=== PATIENT | female | born 1975 | race Caucasian/White ===

== ENCOUNTER 2019-06-15 09:32 | Emergency (ER) | payer OTHER ==
[2019-06-15] MEDS ORDERED: TORAdol 30 mg Injection IV ONE (09:46)
[2019-06-15] MEDS ORDERED: Hydromorphone 1 mg/ml Ampule IV ONE (09:46)
[2019-06-15] MEDS ORDERED: MORPHINE SULFATE 4 MG INJ IV ONE (09:46)
[2019-06-15] MEDS ORDERED: Sodium Chloride 0.9% 1000 ML 1,000 ML IV STA (09:46)
[2019-06-15] MEDS ORDERED: TORAdol 30 mg Injection ONE (09:58)
[2019-06-15] MEDS ORDERED: MORPHINE SULFATE 4 MG INJ ONE (09:58)
[2019-06-15] MEDS ORDERED: Hydromorphone 1 mg/ml Ampule ONE (09:58)
[2019-06-15] MEDS ORDERED: Sodium Chloride 0.9% 1000 ML 1,000 ML ONE (09:59)
[2019-06-15] MEDS ORDERED: Zofran 4 MG/2 ML VIAL ONE (10:00)
--- NOTE | 2019-06-15 10:00 | ERPHSYRPT ---
- History of Present Illness Time Seen by Provider: 06/15/19 09:35 Patient Subjective Stated Complaint: Pt states "I think I have a hernia. My belly hurts so bad." Triage Nursing Assessment: Pt presented alert and oriented X 3, skin pwd Pt grunting, tachypneic. Pt guarding her abdomen. PT sitting with knees drawn up. Physician History: Patient is here with lower abdomen pain. It has been going on for a few weeks. But, it suddenly got worse today. No falls or trauma. She denies vaginal bleeding or vaginal complaints. She has a previous tubal ligation. Lower abdomen Sharp non-radiating several weeks, but worse today started suddenly she as tried no at home medications for pain relief Allergies/Adverse Reactions: cyclobenzaprine [From Flexeril] Allergy (Severe, Verified 06/15/19 09:39) Shortness of Breath Home Medications: Gabapentin [Neurontin] 600 mg PO DAILY 06/15/19 [History] Tramadol HCl 50 mg [Ultram 50 mg] 50 mg PO DAILY 06/15/19 [History] Hx Tetanus, Diphtheria Vaccination/Date Given: Yes Hx Influenza Vaccination/Date Given: Yes Hx Pneumococcal Vaccination/Date Given: No Immunizations Up to Date: Yes - Review of Systems Constitutional: No Fever, No Chills Eyes: No Symptoms Ears, Nose, & Throat: No Symptoms Respiratory: No Cough, No Dyspnea Cardiac: No Chest Pain, No Edema, No Syncope Abdominal/Gastrointestinal: Abdominal Pain, Nausea, No Vomiting, No Diarrhea Genitourinary Symptoms: No Dysuria Musculoskeletal: No Back Pain, No Neck Pain Skin: No Rash Neurological: No Dizziness, No Focal Weakness, No Sensory Changes Psychological: No Symptoms Endocrine: No Symptoms All Other Systems: Reviewed and Negative - Past Medical History Pertinent Past Medical History: Yes Neurological History: No Pertinent History Cardiac History: No Pertinent History Respiratory History: No Pertinent History Endocrine Medical History: No Pertinent History Musculoskeletal History: Fibromyalgia, Other Other Medical History: HX OF SLIP AND FALL ABOUT 10-11 YEARS AGO AND STILL PROBLEM WITH LEFT SIDE ESPECIALLY ARM WITH INTERMITTENT NUMBNESS AND DECREASED STRENGTH. - Past Surgical History Past Surgical History: Yes Other Surgical History: tubal. cyst removed - Social History Smoking Status: Current every day smoker How long have you smoked: years Exposure to second hand smoke: Yes Drug Use: none Patient Lives Alone: No - Female History Hx Last Menstrual Period: 05/26/2019 Hx Now: No - Nursing Vital Signs Nursing Vital Signs: Initial Vital Signs Temperature 97.8 F 06/15/19 09:34 Pulse Rate 80 06/15/19 09:34 Respiratory Rate 22 06/15/19 09:34 Blood Pressure 112/63 06/15/19 09:34 O2 Sat by Pulse Oximetry 100 06/15/19 09:34 Pain Scale Pain Intensity 6 - Physical Exam General Appearance: no apparent distress, alert Eye Exam: PERRL/EOMI, eyes nml inspection Ears, Nose, Throat Exam: normal ENT inspection, pharynx normal, moist mucous membranes Neck Exam: normal inspection, non-tender, supple, full range of motion Respiratory Exam: normal breath sounds, lungs clear, No respiratory distress Cardiovascular Exam: regular rate/rhythm, normal heart sounds Gastrointestinal/Abdomen Exam: soft, No tenderness, No mass Back Exam: normal inspection, normal range of motion, No CVA tenderness, No vertebral tenderness Extremity Exam: normal inspection, normal range of motion, pelvis stable Neurologic Exam: alert, oriented x 3, cooperative, normal mood/affect, nml cerebellar function, sensation nml, No motor deficits Skin Exam: normal color, warm, dry SpO2: 100 Comments: 06/15/19 09:57 Lower abdomen is tender suprapubic without rebound or guarding. Otherwise, abdomen is soft without tenderness Ordered Tests: Active Orders 24 hr Category Date Time Status IV Insertion STAT Care 06/15/19 09:46 Active NPO (ED) STAT Care 06/15/19 09:46 Active ABDOMEN AND PELVIS W CONTRAST [CT] Stat Exams 06/15/19 09:47 Completed CBC W DIFF Stat Lab 06/15/19 09:55 Completed CMP Stat Lab 06/15/19 09:55 Completed HCG QUALITATIVE,SERUM Stat Lab 06/15/19 Completed HCG,QUALITATIVE URINE Stat Lab 06/15/19 Uncollected LIPASE Stat Lab 06/15/19 09:55 Completed UA W/RFX UR CULTURE Stat Lab 06/15/19 09:47 Uncollected Medication Summary Discontinued Medications Generic Name Dose Route Start Last Admin Trade Name Freq PRN Reason Stop Dose Admin Hydromorphone HCl 1 mg 06/15/19 09:46 06/15/19 10:01 Hydromorphone 1 Mg/Ml Ampule IV 06/15/19 09:47 1 mg STAT ONE Administration Hydromorphone HCl Confirm 06/15/19 09:58 Hydromorphone 1 Mg/Ml Ampule Administered 06/15/19 09:59 Dose 1 mg .ROUTE .STK-MED ONE Sodium Chloride 1,000 mls @ 999 mls/hr 06/15/19 09:46 06/15/19 11:08 Sodium Chloride 0.9% 1000 Ml IV 06/15/19 10:46 Infused .Q1H1M STA Infusion Sodium Chloride Confirm 06/15/19 09:59 Sodium Chloride 0.9% 1000 Ml Administered 06/15/19 10:00 Dose 1,000 mls @ ud .ROUTE .STK-MED ONE Ketorolac Tromethamine 30 mg 06/15/19 09:46 06/15/19 10:01 Toradol 30 Mg Injection IV 06/15/19 09:47 30 mg STAT ONE Administration Ketorolac Tromethamine Confirm 06/15/19 09:58 Toradol 30 Mg Injection Administered 06/15/19 09:59 Dose 30 mg .ROUTE .STK-MED ONE Morphine Sulfate 4 mg 06/15/19 09:46 06/15/19 10:01 Morphine Sulfate 4 Mg Inj IV 06/15/19 09:47 Not Given STAT ONE Morphine Sulfate Confirm 06/15/19 09:58 Morphine Sulfate 4 Mg Inj Administered 06/15/19 09:59 Dose 4 mg .ROUTE .STK-MED ONE Ondansetron HCl Confirm 06/15/19 10:00 Zofran 4 Mg/2 Ml Vial Administered 06/15/19 10:01 Dose 4 mg .ROUTE .STK-MED ONE Ondansetron HCl 4 mg 06/15/19 10:03 06/15/19 10:03 Zofran 4 Mg/2 Ml Vial IV 06/15/19 10:04 4 mg STAT ONE Administration Lab/Rad Data: Laboratory Result Diagrams 06/15/19 09:55 06/15/19 09:55 Laboratory Results 06/15/19 06/15/19 12 Range/Units Unknown 09:55 09:55 WBC 8.3 (4.0-10.5) K/mm3 RBC 4.26 (4.1-5.4) M/mm3 Hgb 13.6 (12.0-16.0) gm/dl Hct 41.6 (35-47) % MCV 97.7 (78-100) fl MCH 31.9 (26-32) pg MCHC 32.7 (32-36) g/dl RDW 12.7 (11.5-14.0) % Plt Count 221 (150-450) K/mm3 MPV 10.5 H (6-9.5) fl Gran % 70.0 H (36.0-66.0) % Eos # (Auto) 0.18 (0-0.5) Absolute Lymphs (auto) 1.64 (1.0-4.6) Absolute Monos (auto) 0.60 (0.0-1.3) Lymphocytes % 19.9 L (24.0-44.0) % Monocytes % 7.3 (0.0-12.0) % Eosinophils % 2.2 (0.00-5.0) % Basophils % 0.6 (0.0-0.4) % Absolute Granulocytes 5.78 (1.4-6.9) Basophils # 0.05 (0-0.4) Sodium 145 (137-145) mmol/L Potassium 4.0 (3.5-5.1) mmol/L Chloride 113 H (98-107) mmol/L Carbon Dioxide 23 (22-30) mmol/L Anion Gap 13.5 (5-15) MEQ/L BUN 21 H (7-17) mg/dL Creatinine 0.83 (0.52-1.04) mg/dL Estimated GFR > 60.0 ML/MIN Glucose 64 L (74-106) mg/dL Calcium 9.4 (8.4-10.2) mg/dL Total Bilirubin 0.50 (0.2-1.3) mg/dL AST 28 (14-36) U/L ALT 14 (0-35) U/L Alkaline Phosphatase 50 (38-126) U/L Serum Total Protein 7.5 (6.3-8.2) g/dL Albumin 4.1 (3.5-5.0) g/dL Lipase 128 (23-300) U/L Serum , Qual NEGATIVE (Negative) - Progress Progress Note: 06/15/19 10:00 Diff ectopic , appy, infection, kidney stone, UTI, pyleo, SBO - basic labs, fluids, IV Dilaudid for pain control, CT ab/pelvis 06/15/19 11:20 CT scan shows no obvious pathology some fecal stasis. Work up largely unremarkable. test negative. Patient has not given a urine sample. She still may have a UTI. I did offer constipation medication and waiting for urine. Patient declines waiting to give a urine sample or medication. She states she would like to leave at this time. No fever, no increase in WBC, abdominal reexam is non tender. Therefore, we will discharge and have her see PCP tomorrow. She needs an abdominal reexam in 24 hours. She will also need a UA at the PCP. She states her understanding and will follow up. - Departure Departure Disposition: Home Clinical Impression: Lower abdominal pain Condition: Stable Critical Care Time: No Referrals: LEV LOPEZ [Primary Care Provider] - Follow Up with PCP (abdominal reexam in 24 hours with PCP)
[2019-06-15] MEDS ORDERED: Zofran 4 MG/2 ML VIAL IV ONE (10:03)
[2019-06-15 10:05] LABS: Absolute Neutrophil Ct (ANC) 5.78 (1.4-6.9); BASOPHIL % 0.6 % (0.0-0.4); Basophil (Absolute #) 0.05 (0-0.4); Eosinophil % 2.2 % (0.00-5.0); Eosinophil (Absolute #) 0.18 (0-0.5); Hematocrit 41.6 % (35-47); Hemoglobin 13.6 gm/dl (12.0-16.0); Lymphocyte (Absolute #) 1.64 (1.0-4.6); Lymphocytes % 19.9 % (24.0-44.0); Mean Cell Volume 97.7 fl (78-100); Mean Corpuscular Hemoglobin 31.9 pg (26-32); Mean Corpuscular Hgb Concent. 32.7 g/dl (32-36); Mean Platelet Volume 10.5 fl (6-9.5); Monocytes % 7.3 % (0.0-12.0); Platelet Count 221 K/mm3 (150-450); Red Blood Count 4.26 M/mm3 (4.1-5.4); Red Cell Distribution Width 12.7 % (11.5-14.0); White Blood Count 8.3 K/mm3 (4.0-10.5)
--- NOTE | 2019-06-15 10:50 | XRAY ---
Indication: Lower abdomen pain. Multiple contiguous axial images obtained through the abdomen and pelvis using 80 cc Isovue 370 contrast as ordered. Comparison: None Lung bases demonstrates mild bilateral dependent atelectasis. No infiltrate or effusion. Heart is not enlarged. Noncontrasted stomach and bowel loops appear nonobstructed. Normal appendix. Moderate diffuse scattered colonic fecal debris throughout including rectum. Tiny cul-de-sac free fluid presumed physiologic from rupture/leaking cyst. No free air. Remaining liver, gallbladder, pancreas, spleen, adrenal glands, kidneys, ureters, bladder, and uterus appear unremarkable. Minimal aortic calcifications. No AAA or pathologic retroperitoneal lymphadenopathy. Osseous structures intact. Impression: 1. Diffuse fecal stasis. 2. Tiny cul-de-sac fluid presumed physiologic. 3. Remaining CT abdomen/pelvis with contrast exam is negative. CT DI 3.01
[2019-06-15 10:57] LABS: ALBUMIN 4.1 g/dL (3.5-5.0); ALKALINE PHOSPHATASE 50 U/L (38-126); ANION GAP 13.5 MEQ/L (5-15); BLOOD UREA NITROGEN 21 mg/dL (7-17); CHLORIDE 113 mmol/L (98-107); Calcium 9.4 mg/dL (8.4-10.2); Carbon Dioxide 23 mmol/L (22-30); Creatinine 1 0.83 mg/dL (0.52-1.04); Glucose 64 mg/dL (74-106); LIPASE 128 U/L (23-300); SGOT/AST 28 U/L (14-36); SGPT/ALT 14 U/L (0-35); SODIUM 145 mmol/L (137-145); Total Protein 7.5 g/dL (6.3-8.2)
[2019-06-15 11:54] VITALS: BP 118/77; PULSE 77; O2SAT 97
== END 2019-06-15 11:50 | disposition home or self-care (01) ==
LOC: ED 09:32
DX: R10.30 Lower abdominal pain, unspecified (principal)
CPT/HCPCS: 36000; 36415; 74177; 80053; 81025; 83690; 85025; 96360; 96374; 96375; 99284; J1170; J1885; J2270; J2405

== ENCOUNTER 2019-07-23 21:45 | Emergency (ER) | payer OTHER ==
[2019-07-23] MEDS ORDERED: BENADRYL 25 MG CAPSULE PO ONE (22:09)
[2019-07-23] MEDS ORDERED: Ativan 1 MG PO ONE (22:09)
[2019-07-23 22:13] VITALS: O2SAT 100
--- NOTE | 2019-07-23 22:15 | ERPHSYRPT ---
- History of Present Illness Time Seen by Provider: 07/23/19 22:10 Source: patient, family Exam Limitations: no limitations Physician History: pt reports seeing worms crawling out of forearms and took pinworm meds OTC , but still having itching, no other symptoms at this time; Timing/Duration: week(s) Quality: itchy, painful Severity: moderate Location: hands, extremities Possible Causes: other ( has video of nematodes crawling on skin of forearms) Associated Symptoms: rash Allergies/Adverse Reactions: cyclobenzaprine [From Flexeril] Allergy (Severe, Verified 07/23/19 21:55) Shortness of Breath Home Medications: Alprazolam [Xanax] 0.5 mg PO DAILY 07/23/19 [History] Naproxen 500 mg [Naprosyn 500 MG] 1 tab PO BID 07/23/19 [History] Hx Tetanus, Diphtheria Vaccination/Date Given: Yes Hx Influenza Vaccination/Date Given: Yes Hx Pneumococcal Vaccination/Date Given: No - Review of Systems Constitutional: No Fever, No Chills Eyes: No Symptoms Ears, Nose, & Throat: No Symptoms Respiratory: No Cough, No Dyspnea Cardiac: No Chest Pain, No Edema, No Syncope Abdominal/Gastrointestinal: No Abdominal Pain, No Nausea, No Vomiting, No Diarrhea Genitourinary Symptoms: No Dysuria Musculoskeletal: No Back Pain, No Neck Pain Skin: Pruritis, Rash, Skin Lesions, Other (no current visible nematodes ) Neurological: No Dizziness, No Focal Weakness, No Sensory Changes Psychological: No Symptoms Endocrine: No Symptoms Hematologic/Lymphatic: No Symptoms Immunological/Allergic: No Symptoms All Other Systems: Reviewed and Negative - Past Medical History Pertinent Past Medical History: Yes Neurological History: No Pertinent History Cardiac History: No Pertinent History Respiratory History: No Pertinent History Endocrine Medical History: No Pertinent History Musculoskeletal History: Fibromyalgia, Other Other Medical History: HX OF SLIP AND FALL ABOUT 10-11 YEARS AGO AND STILL PROBLEM WITH LEFT SIDE ESPECIALLY ARM WITH INTERMITTENT NUMBNESS AND DECREASED STRENGTH. - Past Surgical History Past Surgical History: Yes Other Surgical History: tubal. cyst removed - Social History Smoking Status: Current every day smoker How long have you smoked: years Exposure to second hand smoke: Yes Drug Use: none Patient Lives Alone: No - Nursing Vital Signs Nursing Vital Signs: Initial Vital Signs Temperature 97.7 F 07/23/19 22:01 Pulse Rate 83 01/19/20 22:01 Respiratory Rate 18 07/23/19 22:01 Blood Pressure 102/65 07/23/19 22:01 O2 Sat by Pulse Oximetry 100 07/23/19 22:01 Pain Scale Pain Intensity 9 - Physical Exam General Appearance: no apparent distress, alert Eye Exam: PERRL/EOMI, eyes nml inspection Ears, Nose, Throat Exam: normal ENT inspection, pharynx normal, moist mucous membranes Neck Exam: normal inspection, non-tender, supple, full range of motion Respiratory Exam: normal breath sounds, lungs clear, No respiratory distress Cardiovascular Exam: regular rate/rhythm, normal heart sounds Gastrointestinal/Abdomen Exam: soft, mass, No tenderness Pelvic Exam: deferred Rectal Exam: deferred Back Exam: normal inspection, normal range of motion, No CVA tenderness, No vertebral tenderness Extremity Exam: normal inspection, normal range of motion Neurologic Exam: alert, oriented x 3, cooperative, normal mood/affect, sensation nml, No motor deficits Skin Exam: normal color, warm, dry, rash SpO2 Interpretation: normal SpO2: 100 O2 Delivery: Room Air - Course Nursing assessment & vital signs reviewed: Yes Ordered Tests: Active Orders 24 hr Category Date Time Status IV Insertion STAT Care 07/23/19 22:15 Active CBC W DIFF Stat Lab 07/23/19 22:06 Completed CMP Stat Lab 07/23/19 22:06 Completed Erythrocyte Sedimentation Rate Stat Lab 07/23/19 22:06 Completed HCG QUALITATIVE,SERUM Stat Lab 07/23/19 Completed Lactic Acid Stat Lab 07/23/19 23:00 Completed T4 (Thyroxine) Stat Lab 07/23/19 22:06 Completed TSH, 3RD Generation Stat Lab 07/23/19 22:06 Completed UA W/RFX UR CULTURE Stat Lab 07/23/19 23:06 Completed Medication Summary Discontinued Medications Generic Name Dose Route Start Last Admin Trade Name Freq PRN Reason Stop Dose Admin Diphenhydramine HCl 50 mg 07/23/19 22:09 07/23/19 22:22 Benadryl 25 Mg Capsule PO 07/23/19 22:10 50 mg STAT ONE Administration Diphenhydramine HCl Confirm 07/23/19 22:16 Benadryl 25 Mg Capsule Administered 07/23/19 22:17 Dose 50 mg .ROUTE .STK-MED ONE Lorazepam 1 mg 07/23/19 22:09 07/23/19 22:22 Ativan 1 Mg PO 07/23/19 22:10 1 mg STAT ONE Administration Lorazepam Confirm 07/23/19 22:16 Ativan 1 Mg Administered 07/23/19 22:17 Dose 1 mg .ROUTE .STK-MED ONE Lab/Rad Data: Laboratory Result Diagrams 07/23/19 22:06 07/23/19 22:06 Laboratory Results 07/23/19 07/23/19 07/23/19 Range/Units Unknown 23:06 23:00 WBC (4.0-10.5) K/mm3 RBC (4.1-5.4) M/mm3 Hgb (12.0-16.0) gm/dl Hct (35-47) % MCV (78-100) fl MCH (26-32) pg MCHC (32-36) g/dl RDW (11.5-14.0) % Plt Count (150-450) K/mm3 MPV (7.5-11.0) fl Gran % (36.0-66.0) % Eos # (Auto) (0-0.5) Absolute Lymphs (auto) (1.0-4.6) Absolute Monos (auto) (0.0-1.3) Lymphocytes % (24.0-44.0) % Monocytes % (0.0-12.0) % Eosinophils % (0.00-5.0) % Basophils % (0.0-0.4) % Absolute Granulocytes (1.4-6.9) Basophils # (0-0.4) ESR (0-20) mm/hr Sodium (137-145) mmol/L Potassium (3.5-5.1) mmol/L Chloride (98-107) mmol/L Carbon Dioxide (22-30) mmol/L Anion Gap (5-15) MEQ/L BUN (7-17) mg/dL Creatinine (0.52-1.04) mg/dL Estimated GFR ML/MIN Glucose (74-106) mg/dL Lactic Acid 1.6 (0.4-2.0) Calcium (8.4-10.2) mg/dL Total Bilirubin (0.2-1.3) mg/dL AST (14-36) U/L ALT (0-35) U/L Alkaline Phosphatase (38-126) U/L Serum Total Protein (6.3-8.2) g/dL Albumin (3.5-5.0) g/dL Thyroxine (T4) (5.53-10.96) ug/dL TSH 3rd Generation (0.47-4.68) mIU/L Serum , Qual NEGATIVE (Negative) Urine Color YELLOW (YELLOW) Urine Appearance SLIGHTLY CLOUDY (CLEAR) Urine pH 6.0 (5-6) Ur Specific [place] 1.016 (1.005-1.025) Urine Protein NEGATIVE (Negative) Urine Ketones NEGATIVE (NEGATIVE) Urine Blood MODERATE (0-5) Ricardo/ul Urine Nitrite NEGATIVE (NEGATIVE) Urine Bilirubin NEGATIVE (NEGATIVE) Urine Urobilinogen 2 (0-1) mg/dL Ur Leukocyte Esterase NEGATIVE (NEGATIVE) Urine WBC (Auto) NONE (0-5) /HPF Urine RBC (Auto) NONE (0-2) /HPF U Epithel Cells (Auto) RARE (FEW) /HPF Urine Bacteria (Auto) NONE (NEGATIVE) /HPF Urine Mucus (Auto) SLIGHT (NEGATIVE) /HPF Urine Culture Reflexed NO (NO) Urine Glucose NEGATIVE (NEGATIVE) mg/dL 07/23/19 07/23/19 Range/Units 22:06 22:06 WBC 5.9 (4.0-10.5) K/mm3 RBC 4.06 L (4.1-5.4) M/mm3 Hgb 13.3 (12.0-16.0) gm/dl Hct 39.0 (35-47) % MCV 96.1 (78-100) fl MCH 32.8 H (26-32) pg MCHC 34.1 (32-36) g/dl RDW 12.7 (11.5-14.0) % Plt Count 223 (150-450) K/mm3 MPV 10.9 (7.5-11.0) fl Gran % 55.1 (36.0-66.0) % Eos # (Auto) 0.46 (0-0.5) Absolute Lymphs (auto) 1.54 (1.0-4.6) Absolute Monos (auto) 0.60 (0.0-1.3) Lymphocytes % 26.2 (24.0-44.0) % Monocytes % 10.2 (0.0-12.0) % Eosinophils % 7.8 H (0.00-5.0) % Basophils % 0.7 (0.0-0.4) % Absolute Granulocytes 3.23 (1.4-6.9) Basophils # 0.04 (0-0.4) ESR 13 (0-20) mm/hr Sodium 144 (137-145) mmol/L Potassium 3.6 (3.5-5.1) mmol/L Chloride 109 H (98-107) mmol/L Carbon Dioxide 28 (22-30) mmol/L Anion Gap 10.4 (5-15) MEQ/L BUN 20 H (7-17) mg/dL Creatinine 1.00 (0.52-1.04) mg/dL Estimated GFR > 60.0 ML/MIN Glucose 98 (74-106) mg/dL Lactic Acid (0.4-2.0) Calcium 9.3 (8.4-10.2) mg/dL Total Bilirubin 0.50 (0.2-1.3) mg/dL AST 37 H (14-36) U/L ALT 13 (0-35) U/L Alkaline Phosphatase 62 (38-126) U/L Serum Total Protein 7.6 (6.3-8.2) g/dL Albumin 4.3 (3.5-5.0) g/dL Thyroxine (T4) 6.85 (5.53-10.96) ug/dL TSH 3rd Generation 2.310 (0.47-4.68) mIU/L Serum , Qual (Negative) Urine Color (YELLOW) Urine Appearance (CLEAR) Urine pH (5-6) Ur Specific [place] (1.005-1.025) Urine Protein (Negative) Urine Ketones (NEGATIVE) Urine Blood (0-5) Ricardo/ul Urine Nitrite (NEGATIVE) Urine Bilirubin (NEGATIVE) Urine Urobilinogen (0-1) mg/dL Ur Leukocyte Esterase (NEGATIVE) Urine WBC (Auto) (0-5) /HPF Urine RBC (Auto) (0-2) /HPF U Epithel Cells (Auto) (FEW) /HPF Urine Bacteria (Auto) (NEGATIVE) /HPF Urine Mucus (Auto) (NEGATIVE) /HPF Urine Culture Reflexed (NO) Urine Glucose (NEGATIVE) mg/dL - Progress Progress: improved, re-examined Counseled pt/family regarding: lab results, diagnosis, need for follow-up - Departure Departure Disposition: Home Clinical Impression: Cutaneous larva migrans, Anxiety, hematuria/heme + urine Condition: Good Critical Care Time: No Referrals: LEV LOPEZ [Primary Care Provider] - Instructions: Anxiety, Adult (DC), Drug Abuse and Drug Addiction (DC), Cutaneous Larva Migrans, Cutaneous Larva Migrans (DC), Blood in the Urine ( Hematuria) in Adults Additional Instructions: although we cannot confirm residual cutaneous larva directly at this time, it could have been suppressed by the treatment you already had, and there is an elevated blood count marker ( eosinophils) which is frequently seen as part of a parasite infection; you should also followup with your Dr. to check on a rheumatologic disorder workup . THese things can also be triggered by a parasite infection or simulate one; return meantime if any concerns. there is a trace of blood inthe urine which also should be rechecked with your Dr. Prescriptions: Hydroxyzine Pamoate [Vistaril] 50 mg PO Q8HPRN PRN #20 capsule PRN Reason: Itching Albendazole 200 mg PO BID #6 tablet
[2019-07-23] MEDS ORDERED: BENADRYL 25 MG CAPSULE ONE (22:16)
[2019-07-23] MEDS ORDERED: Ativan 1 MG ONE (22:16)
[2019-07-23 22:42] LABS: Absolute Neutrophil Ct (ANC) 3.23 (1.4-6.9); BASOPHIL % 0.7 % (0.0-0.4); Basophil (Absolute #) 0.04 (0-0.4); Eosinophil % 7.8 % (0.00-5.0); Eosinophil (Absolute #) 0.46 (0-0.5); Hemoglobin 13.3 gm/dl (12.0-16.0); Lymphocyte (Absolute #) 1.54 (1.0-4.6); Lymphocytes % 26.2 % (24.0-44.0); Mean Cell Volume 96.1 fl (78-100); Mean Corpuscular Hemoglobin 32.8 pg (26-32); Mean Corpuscular Hgb Concent. 34.1 g/dl (32-36); Mean Platelet Volume 10.9 fl (7.5-11.0); Monocytes % 10.2 % (0.0-12.0); Neutrophil % 55.1 % (36.0-66.0); Platelet Count 223 K/mm3 (150-450); Red Blood Count 4.06 M/mm3 (4.1-5.4); Red Cell Distribution Width 12.7 % (11.5-14.0); White Blood Count 5.9 K/mm3 (4.0-10.5)
[2019-07-23 23:00] LABS: Erythrocyte Sedimentation Rate 13 mm/hr (0-20)
[2019-07-23 23:15] LABS: Appearance SLIGHTLY CLOUDY (CLEAR); Bilirubin NEGATIVE (NEGATIVE); Blood MODERATE Ery/ul (0-5); Epithelial Cells RARE /HPF (FEW); Glucose NEGATIVE (NEGATIVE); Ketones NEGATIVE (NEGATIVE); Leukocyte Esterase NEGATIVE (NEGATIVE); Mucus SLIGHT /HPF (NEGATIVE); Nitrite NEGATIVE (NEGATIVE); Protein,Urine Dip NEGATIVE (Negative); Specific Gravity 1.016 (1.005-1.025); Urobilinogen 2 mg/dL (0-1)
[2019-07-23 23:30] LABS: ALBUMIN 4.3 g/dL (3.5-5.0); ALKALINE PHOSPHATASE 62 U/L (38-126); ANION GAP 10.4 MEQ/L (5-15); BLOOD UREA NITROGEN 20 mg/dL (7-17); CHLORIDE 109 mmol/L (98-107); Calcium 9.3 mg/dL (8.4-10.2); Carbon Dioxide 28 mmol/L (22-30); Glucose 98 mg/dL (74-106); Potassium 3.6 mmol/L (3.5-5.1); SGOT/AST 37 U/L (14-36); SGPT/ALT 13 U/L (0-35); SODIUM 144 mmol/L (137-145); T4 (Thyroxine) 6.85 ug/dL (5.53-10.96); Total Protein 7.6 g/dL (6.3-8.2)
[2019-07-24 00:10] VITALS: BP 92/57; PULSE 70
== END 2019-07-24 00:20 | disposition home or self-care (01) ==
LOC: ED 21:45
DX: B76.9 Hookworm disease, unspecified (principal); F41.9 Anxiety disorder, unspecified; R31.9 Hematuria, unspecified; R21 Rash and other nonspecific skin eruption; R79.89 Other specified abnormal findings of blood chemistry
CPT/HCPCS: 36000; 36415; 80053; 81001; 81025; 83605; 84436; 84443; 85025; 85652; 99284; A9270-GY

== ENCOUNTER 2019-10-09 20:58 | Emergency (ER) | payer MEDICAID, OTHER ==
--- NOTE | 2019-10-09 21:04 | ERPHSYRPT ---
- History of Present Illness Time Seen by Provider: 10/09/19 21:04 Source: patient Exam Limitations: no limitations Physician History: This is a 44-year-old white female who has a history of anxiety disorder and presents with at least a 3-month history of electricity in her hair and then a visualization of bugs in her hair 3 months ago and complaints of bugs crawling on her skin. She sought medical evaluation in this emergency room on July. Although no specific larva a or bug infestation was found on that visit patient did get a treatment of albendazole and the diagnosis was given as cutaneous larva migrans. Patient states that after that treatment her symptoms have not improved. She states now she has swelling in her hands wrists and bilateral ankles. She states that she has been putting bleach on her hair and skin and this is not helping her symptoms either. Timing/Duration: other (Present for over 3 months) Severity: mild Associated Symptoms: denies symptoms Allergies/Adverse Reactions: cyclobenzaprine [From Flexeril] Allergy (Severe, Verified 10/09/19 21:20) Shortness of Breath Home Medications: Alprazolam [Xanax] 0.5 mg PO DAILY PRN PRN 07/23/19 [History] Naproxen 500 mg [Naprosyn 500 MG] 1 tab PO BID 07/23/19 [History] Hx Tetanus, Diphtheria Vaccination/Date Given: Yes Hx Influenza Vaccination/Date Given: Yes Hx Pneumococcal Vaccination/Date Given: No Travel Risk - International Travel Have you traveled outside of the country in past 3 weeks: No Have you or anyone close to you been diagnosed with or: No Do your reside in a community with a known COVID-19 case?: Yes If Yes where:: [facility] - Coronavirus Screening Has patient experienced Coronavirus symptoms: No - Review of Systems Constitutional: No Symptoms Eyes: No Symptoms Ears, Nose, & Throat: No Symptoms Respiratory: No Symptoms Cardiac: No Symptoms Abdominal/Gastrointestinal: No Symptoms Genitourinary Symptoms: No Symptoms Musculoskeletal: Other (Patient feels she has swelling in bilateral hands wrists and ankles and feet) Skin: No Symptoms Neurological: No Symptoms Psychological: No Symptoms Endocrine: No Symptoms Hematologic/Lymphatic: No Symptoms Immunological/Allergic: No Symptoms All Other Systems: Reviewed and Negative - Past Medical History Pertinent Past Medical History: Yes Neurological History: No Pertinent History Cardiac History: No Pertinent History Respiratory History: No Pertinent History Endocrine Medical History: No Pertinent History Musculoskeletal History: Fibromyalgia, Other GI Medical History: No Pertinent History History: No Pertinent History Psycho-Social History: No Pertinent History Female Reproductive Disorders: No Pertinent History Other Medical History: HX OF SLIP AND FALL ABOUT 10-11 YEARS AGO AND STILL PROBLEM WITH LEFT SIDE ESPECIALLY ARM WITH INTERMITTENT NUMBNESS AND DECREASED STRENGTH. - Past Surgical History Past Surgical History: Yes Neuro Surgical History: No Pertinent History Cardiac: No Pertinent History Respiratory: No Pertinent History Gastrointestinal: No Pertinent History Genitourinary: No Pertinent History Musculoskeletal: No Pertinent History Female Surgical History: No Pertinent History Other Surgical History: tubal. cyst removed - Social History Smoking Status: Current every day smoker How long have you smoked: years Exposure to second hand smoke: Yes Drug Use: none Patient Lives Alone: No - Nursing Vital Signs Nursing Vital Signs: Initial Vital Signs Temperature 98.2 F 10/09/19 21:05 Pulse Rate 93 H 10/09/19 21:05 Respiratory Rate 18 10/09/19 21:05 Blood Pressure 145/115 10/09/19 21:05 O2 Sat by Pulse Oximetry 95 10/09/19 21:05 Pain Scale Pain Intensity 6 - Physical Exam General Appearance: no apparent distress Eye Exam: PERRL/EOMI, eyes nml inspection Ears, Nose, Throat Exam: normal ENT inspection, moist mucous membranes Neck Exam: normal inspection, non-tender, supple, full range of motion Respiratory Exam: normal breath sounds, lungs clear, airway intact, No chest tenderness, No respiratory distress Cardiovascular Exam: regular rate/rhythm, normal heart sounds, normal peripheral pulses Gastrointestinal/Abdomen Exam: No tenderness Pelvic Exam: not done Rectal Exam: not done Back Exam: normal inspection, normal range of motion, No CVA tenderness, No vertebral tenderness Extremity Exam: normal inspection, normal range of motion, pelvis stable Neurologic Exam: alert, oriented x 3, cooperative, fish cutter II-XII nml as tested Skin Exam: normal color Lymphatic Exam: adenopathy SpO2 Interpretation: normal O2 Delivery: Room Air - Course Nursing assessment & vital signs reviewed: Yes Ordered Tests: Active Orders 24 hr Category Date Time Status Isolation, Initiate & Maintain Q4H Care 10/09/19 21:20 Active CBC W DIFF Stat Lab 10/09/19 21:25 Completed CMP Stat Lab 10/09/19 21:25 Completed CULTURE,URINE Stat Lab 10/09/19 21:30 Received NT PRO BNP Stat Lab 10/09/19 21:25 Completed UA W/RFX UR CULTURE Stat Lab 10/09/19 21:30 Completed Urine Triage Profile Stat Lab 10/09/19 21:30 Received Medication Summary Discontinued Medications Generic Name Dose Route Start Last Admin Trade Name Cabrera PRN Reason Stop Dose Admin Ciprofloxacin 500 mg 10/09/19 21:59 10/09/19 22:04 Cipro 500 Mg PO 10/09/19 22:00 500 mg STAT ONE Administration Ciprofloxacin Confirm 10/09/19 22:03 Cipro 500 Mg Administered 10/09/19 22:04 Dose 500 mg .ROUTE .[employer] [employer] ONE Lab/Rad Data: Laboratory Result Diagrams 10/09/19 21:25 10/09/19 21:25 Laboratory Results 10/09/19 10/09/19 10/09/19 Range/Units 21:30 21:25 21:25 WBC 6.5 (4.0-10.5) K/mm3 RBC 4.14 (4.1-5.4) M/mm3 Hgb 13.1 (12.0-16.0) gm/dl Hct 40.1 (35-47) % MCV 96.9 (78-100) fl MCH 31.6 (26-32) pg MCHC 32.7 (32-36) g/dl RDW 13.1 (11.5-14.0) % Plt Count 194 (150-450) K/mm3 MPV 10.8 (7.5-11.0) fl Gran % 47.2 (36.0-66.0) % Eos # (Auto) 0.34 (0-0.5) Absolute Lymphs (auto) 2.53 (1.0-4.6) Absolute Monos (auto) 0.50 (0.0-1.3) Lymphocytes % 39.0 (24.0-44.0) % Monocytes % 7.7 (0.0-12.0) % Eosinophils % 5.2 H (0.00-5.0) % Basophils % 0.9 (0.0-0.4) % Absolute Granulocytes 3.05 (1.4-6.9) Basophils # 0.06 (0-0.4) Sodium 143 (137-145) mmol/L Potassium 4.0 (3.5-5.1) mmol/L Chloride 113 H (98-107) mmol/L Carbon Dioxide 23 (22-30) mmol/L Anion Gap 11.3 (5-15) MEQ/L BUN 21 H (7-17) mg/dL Creatinine 0.77 (0.52-1.04) mg/dL Estimated GFR > 60.0 ML/MIN Glucose 104 (74-106) mg/dL Calcium 8.9 (8.4-10.2) mg/dL Total Bilirubin 0.40 (0.2-1.3) mg/dL AST 24 (14-36) U/L ALT 18 (0-35) U/L Alkaline Phosphatase 53 (38-126) U/L NT-Pro-B Natriuret Pep 128 (0-450) pg/mL Serum Total Protein 6.7 (6.3-8.2) g/dL Albumin 3.8 (3.5-5.0) g/dL Urine Color YELLOW (YELLOW) Urine Appearance CLOUDY (CLEAR) Urine pH 6.0 (5-6) Ur Specific Donaldson 1.029 (1.005-1.025) Urine Protein NEGATIVE (Negative) Urine Ketones NEGATIVE (NEGATIVE) Urine Blood NEGATIVE (0-5) Ricardo/ul Urine Nitrite NEGATIVE (NEGATIVE) Urine Bilirubin NEGATIVE (NEGATIVE) Urine Urobilinogen 2 (0-1) mg/dL Ur Leukocyte Esterase SMALL (NEGATIVE) Urine WBC (Auto) 11-15 (0-5) /HPF Urine RBC (Auto) 6-10 (0-2) /HPF U Epithel Cells (Auto) MANY (FEW) /HPF Urine Bacteria (Auto) FEW (NEGATIVE) /HPF Unidentified Crystals 2-5 (NEGATIVE) /HPF Urine Mucus (Auto) SLIGHT (NEGATIVE) /HPF Urine Culture Reflexed YES (NO) Urine Glucose NEGATIVE (NEGATIVE) mg/dL - Progress Progress: unchanged Counseled pt/family regarding: lab results, diagnosis, need for follow-up - Departure Departure Disposition: Home Clinical Impression: UTI (urinary tract infection), Methamphetamine abuse Condition: Stable Critical Care Time: No Referrals: LEV LOPEZ [Primary Care Provider] - Additional Instructions: Drink Plenty of fluids. Take your medication as prescribed. Stop using illicit drugs. Follow-up with your primary care physician for further evaluation.
[2019-10-09 21:31] LABS: Absolute Neutrophil Ct (ANC) 3.05 (1.4-6.9); BASOPHIL % 0.9 % (0.0-0.4); Basophil (Absolute #) 0.06 (0-0.4); Eosinophil % 5.2 % (0.00-5.0); Eosinophil (Absolute #) 0.34 (0-0.5); Hematocrit 40.1 % (35-47); Hemoglobin 13.1 gm/dl (12.0-16.0); Lymphocyte (Absolute #) 2.53 (1.0-4.6); Mean Cell Volume 96.9 fl (78-100); Mean Corpuscular Hemoglobin 31.6 pg (26-32); Mean Corpuscular Hgb Concent. 32.7 g/dl (32-36); Mean Platelet Volume 10.8 fl (7.5-11.0); Monocytes % 7.7 % (0.0-12.0); Neutrophil % 47.2 % (36.0-66.0); Platelet Count 194 K/mm3 (150-450); Red Blood Count 4.14 M/mm3 (4.1-5.4); Red Cell Distribution Width 13.1 % (11.5-14.0); White Blood Count 6.5 K/mm3 (4.0-10.5)
[2019-10-09 21:45] LABS: Appearance CLOUDY (CLEAR); Bacteria FEW /HPF (NEGATIVE); Bilirubin NEGATIVE (NEGATIVE); Blood NEGATIVE Ery/ul (0-5); Epithelial Cells MANY /HPF (FEW); Glucose NEGATIVE (NEGATIVE); Ketones NEGATIVE (NEGATIVE); Leukocyte Esterase SMALL (NEGATIVE); Mucus SLIGHT /HPF (NEGATIVE); Nitrite NEGATIVE (NEGATIVE); Protein,Urine Dip NEGATIVE (Negative); Specific Gravity 1.029 (1.005-1.025); Urobilinogen 2 mg/dL (0-1)
[2019-10-09 21:55] LABS: Barbiturate,Urine NEGATIVE (NEGATIVE); Cocaine,Urine NEGATIVE (NEGATIVE); Methadone,Urine NEGATIVE (NEGATIVE); Opiate,Urine NEGATIVE (NEGATIVE); PCP,Urine NEGATIVE (NEGATIVE); THC,Urine NEGATIVE (NEGATIVE)
[2019-10-09] MEDS ORDERED: Cipro 500 MG PO ONE (21:59)
[2019-10-09 22:00] LABS: ALBUMIN 3.8 g/dL (3.5-5.0); ALKALINE PHOSPHATASE 53 U/L (38-126); ANION GAP 11.3 MEQ/L (5-15); BLOOD UREA NITROGEN 21 mg/dL (7-17); CHLORIDE 113 mmol/L (98-107); Calcium 8.9 mg/dL (8.4-10.2); Carbon Dioxide 23 mmol/L (22-30); Creatinine 1 0.77 mg/dL (0.52-1.04); Glucose 104 mg/dL (74-106); NT PRO BNP 128 pg/mL (0-450); SGOT/AST 24 U/L (14-36); SGPT/ALT 18 U/L (0-35); SODIUM 143 mmol/L (137-145); Total Protein 6.7 g/dL (6.3-8.2)
[2019-10-09] MEDS ORDERED: Cipro 500 MG ONE (22:03)
[2019-10-09 22:04] LABS: Benzodiazepine,Urine NEGATIVE (NEGATIVE)
[2019-10-09 22:07] VITALS: BP 105/55; PULSE 80; O2SAT 98
[2019-10-09 22:22] LABS: Amphetamine,Urine POSITIVE (NEGATIVE)
== END 2019-10-09 22:33 | disposition home or self-care (01) ==
LOC: ED 20:58
DX: N39.0 Urinary tract infection, site not specified (principal); F15.10 Other stimulant abuse, uncomplicated; F41.9 Anxiety disorder, unspecified
CPT/HCPCS: 36415; 80053; 80307; 81001; 83880; 85025; 87086; 99283; A9270-GY

== ENCOUNTER 2020-07-15 09:28 | Emergency (ER) | payer MEDICAID, OTHER ==
[2020-07-15] MEDS ORDERED: Sodium Chloride 0.9% 1000 ML 1,000 ML IV STA (09:30)
--- NOTE | 2020-07-15 09:33 | ERPHSYRPT ---
- History of Present Illness Time Seen by Provider: 07/15/20 09:40 Source: patient Exam Limitations: no limitations Physician History: Patient is a 44-year-old female presents to our ED with complaints of syncope. Patient arrived via EMS collared. Patient states that she was feeling dizzy. Patient felt she had to go to the bathroom. Patient went to have a bowel mov ement. Patient states she awoke on the floor. Patient had blood around her nose. No associated chest pain. No nausea or vomiting. No diaphoresis. No shortness of breath. No numbness tingling or weakness. Symptoms are mild to moderate in intensity. No specific worsening or improving factors. Patient is otherwise healthy. She voices no other complaints or concerns at this time. Patient is observed to be shivering. Patient states she is cold. It is cold outdoors today. Timing/Duration: today Severity: moderate Modifying Factors: Improves With: nothing Associated Symptoms: No nausea, No vomiting, No abdominal pain, No shortness of breath, No heartburn, No diaphoresis, No cough, No chills, No chest pain, No fever, No headaches, No loss of appetite, No syncope Allergies/Adverse Reactions: cyclobenzaprine [From Flexeril] Allergy (Severe, Verified 10/09/19 21:20) Shortness of Breath Home Medications: Unobtainable 07/15/20 [History] Hx Tetanus, Diphtheria Vaccination/Date Given: Yes Hx Influenza Vaccination/Date Given: Yes Hx Pneumococcal Vaccination/Date Given: No - Review of Systems Constitutional: No Symptoms, No Fever, No Chills Eyes: No Symptoms Ears, Nose, & Throat: No Symptoms Respiratory: No Symptoms, No Cough, No Dyspnea Cardiac: No Symptoms, No Chest Pain, No Edema, No Syncope Abdominal/Gastrointestinal: No Symptoms, No Abdominal Pain, No Nausea, No Vomiting, No Diarrhea Genitourinary Symptoms: No Symptoms, No Dysuria Musculoskeletal: No Symptoms, No Back Pain, No Neck Pain Skin: No Symptoms, No Rash Neurological: No Symptoms, No Dizziness, No Focal Weakness, No Sensory Changes Psychological: No Symptoms Endocrine: No Symptoms Hematologic/Lymphatic: No Symptoms Immunological/Allergic: No Symptoms All Other Systems: Reviewed and Negative - Past Medical History Pertinent Past Medical History: Yes Neurological History: No Pertinent History ENT History: No Pertinent History Cardiac History: No Pertinent History Respiratory History: No Pertinent History Endocrine Medical History: No Pertinent History Musculoskeletal History: Fibromyalgia, Other GI Medical History: No Pertinent History History: No Pertinent History Psycho-Social History: No Pertinent History Female Reproductive Disorders: No Pertinent History Other Medical History: HX OF SLIP AND FALL ABOUT 10-11 YEARS AGO AND STILL PROBLEM WITH LEFT SIDE ESPECIALLY ARM WITH INTERMITTENT NUMBNESS AND DECREASED STRENGTH. - Past Surgical History Past Surgical History: Yes Neuro Surgical History: No Pertinent History Cardiac: No Pertinent History Respiratory: No Pertinent History Gastrointestinal: No Pertinent History Genitourinary: No Pertinent History Musculoskeletal: No Pertinent History Female Surgical History: No Pertinent History Other Surgical History: tubal. cyst removed - Social History Smoking Status: Current every day smoker How long have you smoked: years Exposure to second hand smoke: Yes Drug Use: none Patient Lives Alone: No - Nursing Vital Signs Nursing Vital Signs: Initial Vital Signs Temperature 97.5 F 07/15/20 09:28 Pulse Rate 62 07/15/20 09:28 Respiratory Rate 22 07/15/20 09:28 Blood Pressure 98/64 07/15/20 09:28 O2 Sat by Pulse Oximetry 92 L 07/15/20 09:28 Pain Scale Pain Intensity 5 - Physical Exam General Appearance: no apparent distress, alert Eye Exam: PERRL/EOMI, eyes nml inspection Ears, Nose, Throat Exam: normal ENT inspection, TMs normal, pharynx normal, moist mucous membranes, other (There is a through and through laceration at the right upper lip. No active bleeding. There is swelling no foreign body. Dentition intact.) Neck Exam: normal inspection, other (Tenderness to palpation midline C-spine. We will maintain cervical collar until CT scan results.) Respiratory Exam: normal breath sounds, lungs clear, No respiratory distress Cardiovascular Exam: regular rate/rhythm, normal heart sounds, normal peripheral pulses Gastrointestinal/Abdomen Exam: soft, normal bowel sounds, No tenderness, No mass Back Exam: normal inspection, normal range of motion, No CVA tenderness, No vertebral tenderness Extremity Exam: normal inspection, normal range of motion, pelvis stable, other (Tenderness to palpation right posterior shoulder.) Neurologic Exam: alert, oriented x 3, cooperative, normal mood/affect, sensation nml, No motor deficits, No sensory deficit, No disoriented, No confusion, No uncooperative, No motor weakness, No facial droop, No slurred speech, No aphasia, No dysarthria, No abnormal gait, No abnormal cerebellar tests, No abnormal director sales and marketing II-XII Skin Exam: normal color, warm, dry, No rash Lymphatic Exam: No adenopathy SpO2 Interpretation: hypoxic SpO2: 92 O2 Delivery: Room Air Procedures - Laceration/Wound Repair Lip Wound Location: face (Right upper lip.) Wound's Depth, Shape: linear (There is a puncture wound with slight extension through the upper lip mucosa which extends to the vermilion border on the corresponding side.) Irrigated: Yes Hibiclens Prep: Yes Anesthesia: local, 1% Lidocaine Volume Anesthetic (ccs): 3 Wound Debrided: No debridement Wound Repaired With: sutures Suture Size/Type: 6-0, vicryl Number of Sutures: 2 Layer Closure?: No - Course Nursing assessment & vital signs reviewed: Yes EKG Interpreted by Me: RATE (60), Sinus Rhythm, NORMAL AXIS, NORMAL INTERVALS - Radiology Exams Shoulder X-ray Interpretation: Teleradiologist Report (No bony articular or soft tissue abnormalities.) - CT Exams Head CT Interpretation: Tele-radiologist Report (Paranasal sinus disease. Remaining CT head without contrast exam is negative.) Maxillofacial Bones CT Interpretation: Tele-radiologist Report (Mucosal thickening. Particularly of both inferior maxillary sinuses. Minimal nasal septal deviation to the left. Remaining soft tissue negative. 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 Remaining CT cervical spine negative.) Ordered Tests: Active Orders 24 hr Category Date Time Status Care Transitions Nurse STAT Care 07/15/20 09:31 Active EKG-ER Only STAT Care 07/15/20 09:30 Active IV Insertion STAT Care 07/15/20 09:30 Active Pulse Oximetry (ED) STAT Care 07/15/20 09:30 Active CERVICAL SPINE WO CONTRAST [CT] Stat Exams 07/15/20 10:29 Completed FACIAL BONES WO CONTRAST [CT] Stat Exams 07/15/20 10:29 Completed HEAD WITHOUT CONTRAST [CT] Stat Exams 07/15/20 10:29 Completed SHOULDER Stat Exams 07/15/20 10:28 Completed CBC W DIFF Stat Lab 07/15/20 09:49 Completed CMP Stat Lab 07/15/20 09:49 Completed D-DIMER QUANTITATIVE Stat Lab 07/15/20 09:49 Completed HCG,QUALITATIVE URINE Stat Lab 07/15/20 12:52 Ordered MAGNESIUM Stat Lab 07/15/20 09:49 Completed TROPONIN Q3H Lab 07/15/20 09:49 Completed TROPONIN Q3H Lab 07/15/20 12:06 Completed UA W/RFX UR CULTURE Stat Lab 07/15/20 12:52 Ordered Medication Summary Discontinued Medications Generic Name Dose Route Start Last Admin Trade Name Cabrera PRN Reason Stop Dose Admin Sodium Chloride 1,000 mls @ 999 mls/hr 07/15/20 09:30 07/15/20 09:58 Sodium Chloride 0.9% 1000 Ml IV 07/15/20 10:30 Not Given .Q1H1M STA Lidocaine HCl Confirm 07/15/20 13:14 Xylocaine 1% Hcl 20 Ml Mdv Administered 07/15/20 13:15 Dose 5 ml .ROUTE .[employer] Lab/Rad Data: Laboratory Result Diagrams 07/15/20 09:49 07/15/20 09:49 Laboratory Results 07/15/20 07/15/20 07/15/20 Range/Units 12:06 09:49 09:49 WBC (4.0-10.5) K/mm3 RBC (4.1-5.4) M/mm3 Hgb (12.0-16.0) gm/dl Hct (35-47) % MCV (78-100) fl MCH (26-32) pg MCHC (32-36) g/dl RDW (11.5-14.0) % Plt Count (150-450) K/mm3 MPV (7.5-11.0) fl Gran % (36.0-66.0) % Eos # (Auto) (0-0.5) Absolute Lymphs (auto) (1.0-4.6) Absolute Monos (auto) (0.0-1.3) Lymphocytes % (24.0-44.0) % Monocytes % (0.0-12.0) % Eosinophils % (0.00-5.0) % Basophils % (0.0-0.4) % Absolute Granulocytes (1.4-6.9) Basophils # (0-0.4) D-Dimer 407 (215-500) ng/mL Sodium (137-145) mmol/L Potassium (3.5-5.1) mmol/L Chloride (98-107) mmol/L Carbon Dioxide (22-30) mmol/L Anion Gap (5-15) MEQ/L BUN (7-17) mg/dL Creatinine (0.52-1.04) mg/dL Estimated GFR ML/MIN Glucose (74-106) mg/dL Calcium (8.4-10.2) mg/dL Magnesium (1.6-2.3) mg/dL Total Bilirubin (0.2-1.3) mg/dL AST (14-36) U/L ALT (0-35) U/L Alkaline Phosphatase (38-126) U/L Troponin I < 0.012 < 0.012 (0.000-0.034) ng/mL Serum Total Protein (6.3-8.2) g/dL Albumin (3.5-5.0) g/dL 07/15/20 07/15/20 Range/Units 09:49 09:49 WBC 6.5 (4.0-10.5) K/mm3 RBC 4.13 (4.1-5.4) M/mm3 Hgb 13.0 (12.0-16.0) gm/dl Hct 40.9 (35-47) % MCV 99.0 (78-100) fl MCH 31.5 (26-32) pg MCHC 31.8 L (32-36) g/dl RDW 13.0 (11.5-14.0) % Plt Count 215 (150-450) K/mm3 MPV 10.0 (7.5-11.0) fl Gran % 62.5 (36.0-66.0) % Eos # (Auto) 0.22 (0-0.5) Absolute Lymphs (auto) 1.76 (1.0-4.6) Absolute Monos (auto) 0.42 (0.0-1.3) Lymphocytes % 27.1 (24.0-44.0) % Monocytes % 6.5 (0.0-12.0) % Eosinophils % 3.4 (0.00-5.0) % Basophils % 0.5 (0.0-0.4) % Absolute Granulocytes 4.07 (1.4-6.9) Basophils # 0.03 (0-0.4) D-Dimer (215-500) ng/mL Sodium 140 (137-145) mmol/L Potassium 4.4 (3.5-5.1) mmol/L Chloride 112 H (98-107) mmol/L Carbon Dioxide 24 (22-30) mmol/L Anion Gap 8.8 (5-15) MEQ/L BUN 15 (7-17) mg/dL Creatinine 0.74 (0.52-1.04) mg/dL Estimated GFR > 60.0 ML/MIN Glucose 111 H (74-106) mg/dL Calcium 9.0 (8.4-10.2) mg/dL Magnesium 2.2 (1.6-2.3) mg/dL Total Bilirubin 0.40 (0.2-1.3) mg/dL AST 37 H (14-36) U/L ALT 13 (0-35) U/L Alkaline Phosphatase 47 (38-126) U/L Troponin I (0.000-0.034) ng/mL Serum Total Protein 6.7 (6.3-8.2) g/dL Albumin 3.7 (3.5-5.0) g/dL - Progress Progress: improved Progress Note: 07/15/20 12:14 Patient reassessed. She feels well. Work-up essentially negative. Patient was asymptomatic. Patient syncope likely either vasovagal versus orthostatic. IV fluid administered. CT head face neck all negative for acute pathology. Right shoulder x-ray negative as well. Troponin negative x2. Patient has no sig nificant risk factors to merit admission for the syncopal episode. Patient ambulated in our ED. Patient stated she felt very dizzy and felt as though she was going to pass out again. Patient requested admission. Case discussed with Dr. Gaxiola who excepts admission to observation. 07/15/20 12:40 07/15/20 13:31 Patient later decided that she wanted to go home. She has a 15-year-old son that needs her at home. We will discharge patient home. Patient will be given a prescription for Keflex to address/treat the right aspect of the upper lip laceration. Dr. Gaxiola updated on patient desire to leave. Patient will leave AMA. Patient is of sound mind. Patient is appropriate to make informed and independent medical decisions. Patient understands that leaving AMA can result in delayed diagnosis, increased risk morbidity, mortality, worsening of symptoms, short and long-term disability including . In spite of her risks patient has decided to leave AMA. An AMA form was signed. Patient understand that she may return to our ED at any point if she changes her mind. Patient agrees to follow-up with her primary care doctor within 48 hours for reevaluation. Discussed with : Edilberto Counseled pt/family regarding: lab results, diagnosis, need for follow-up, rad results - Departure Departure Disposition: AMA Clinical Impression: Syncope and collapse, Facial contusion, Diarrhea, Lip laceration Condition: Fair Critical Care Time: No Referrals: LEV LOPEZ [NON-STAFF PHY W/O PRIVILEGES] - Additional Instructions: Discharge/Care Plan SUTHERLANDPRINCESS AMANDA was seen on 07/15/20 in the Emergency Room. The patient wa s counseled regarding Diagnosis,Lab results, Imaging studies, need for follow up and when to return to the Emergency Room. Prescriptions given: Discharge Note I have spoken with the patient and/or caregivers. I have explained the patient's condition, diagnosis and treatment plan based on the information available to me at this time. I have answered the patient's and/or caregiver's questions and addressed any concerns. The patient and/or caregivers have as good understanding of the patient's diagnosis, condition and treatment plan as can be expected at this point. The vital signs have been stable. The patient's condition is stable and appropriate for discharge from the emergency department. The patient will pursue further outpatient evaluation with the primary care physician or other designated or consulting physician as outlined in the discharge instructions. The patient and/or caregivers are agreeable to this plan of care and follow-up instructions have been explained in detail. The patient and/or caregivers have received these instruction. The patient/and or caregivers are aware that any significant change in condition or worsening of symptoms should prompt an immediate return to this or the closest emergency department or call 911.
[2020-07-15 09:52] LABS: Absolute Neutrophil Ct (ANC) 4.07 (1.4-6.9); BASOPHIL % 0.5 % (0.0-0.4); Basophil (Absolute #) 0.03 (0-0.4); Eosinophil % 3.4 % (0.00-5.0); Eosinophil (Absolute #) 0.22 (0-0.5); Hematocrit 40.9 % (35-47); Lymphocyte (Absolute #) 1.76 (1.0-4.6); Lymphocytes % 27.1 % (24.0-44.0); Mean Corpuscular Hemoglobin 31.5 pg (26-32); Mean Corpuscular Hgb Concent. 31.8 g/dl (32-36); Monocyte (Absolute #) 0.42 (0.0-1.3); Monocytes % 6.5 % (0.0-12.0); Neutrophil % 62.5 % (36.0-66.0); Platelet Count 215 K/mm3 (150-450); Red Blood Count 4.13 M/mm3 (4.1-5.4); White Blood Count 6.5 K/mm3 (4.0-10.5)
[2020-07-15 10:24] LABS: ALBUMIN 3.7 g/dL (3.5-5.0); ALKALINE PHOSPHATASE 47 U/L (38-126); ANION GAP 8.8 MEQ/L (5-15); BLOOD UREA NITROGEN 15 mg/dL (7-17); CHLORIDE 112 mmol/L (98-107); Carbon Dioxide 24 mmol/L (22-30); Creatinine 1 0.74 mg/dL (0.52-1.04); EST GLOMERULAR FILTRATION RATE > 60.0 ML/MIN; Glucose 111 mg/dL (74-106); MAGNESIUM 2.2 mg/dL (1.6-2.3); Potassium 4.4 mmol/L (3.5-5.1); SGOT/AST 37 U/L (14-36); SGPT/ALT 13 U/L (0-35); SODIUM 140 mmol/L (137-145); Total Protein 6.7 g/dL (6.3-8.2)
--- NOTE | 2020-07-15 11:42 | XRAY ---
Indication: Right-sided injury following fall. Multiple contiguous axial images obtained through the head without contrast. Comparison: None Normal appearing brain parenchyma, ventricles, and bony calvarium. There is moderate mucosal thickening of both maxillary sinuses. Mastoid air cells are clear. Impression: Paranasal sinus disease. Remaining CT head without contrast exam is negative.
--- NOTE | 2020-07-15 11:46 | XRAY ---
Indication: Right-sided injury following fall. Multiple contiguous axial images obtained through the facial bones. Sagittal and coronal reformatted images obtained. Comparison: None. Multiple bilateral dental amalgams produces beam artifact. Axial images negative for acute fracture, suspicious bony lesions, or radiopaque foreign body. Orbits including roof, coffey, and floors are intact. There is moderate mucosal thickening of both inferior maxillary sinuses. Remaining paranasal sinuses and nasal passages are clear. Minimal nasal septal deviation to the left. Remaining visualized noncontrasted soft tissues are unremarkable. Impression: Paranasal sinus disease and minimal nasal septal deviation. Remaining CT facial bones is negative.
--- NOTE | 2020-07-15 11:51 | XRAY ---
Indication: Right-sided injury following fall. Multiple contiguous axial images obtained through the cervical spine. Sagittal and coronal reformatted images obtained. Comparison: Cervical radiograph September 23, 2017. Anatomic variants for nonunited posterior arch of C1. Spinous process of T1 again demonstrates old nonunited fracture. Remaining axial images negative for acute fracture, suspicious bony lesions, or spinal canal stenosis. Sagittal and coronal reformatted images demonstrates normal alignment with vertebral body heights/disc spaces maintained. No acute compression fracture, subluxation, or jumped facet. Normal appearing craniocervical junction. Visualized noncontrasted soft tissues demonstrates scattered centimeter/subcentimeter cervical lymph nodes bilaterally, none pathologically enlarged. Lung apices are clear. Impression: 1. 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 2. Remaining CT cervical spine is negative.
--- NOTE | 2020-07-15 12:09 | XRAY ---
Indication: Pain following fall. Comparison: None 3 view right shoulder obtained. No bony, articular, or soft tissue abnormalities.
[2020-07-15] MEDS ORDERED: XYLOCAINE 1% HCL 20 ML MDV ONE (13:14)
[2020-07-15 13:26] VITALS: BP 107/72; PULSE 66
[2020-07-15 13:30] LABS: Appearance SLIGHTLY CLOUDY (CLEAR); Bilirubin NEGATIVE (NEGATIVE); Blood NEGATIVE Ery/ul (0-5); Epithelial Cells RARE /HPF (FEW); Glucose NEGATIVE (NEGATIVE); Ketones NEGATIVE (NEGATIVE); Leukocyte Esterase NEGATIVE (NEGATIVE); Mucus SLIGHT /HPF (NEGATIVE); Nitrite NEGATIVE (NEGATIVE); Protein,Urine Dip NEGATIVE (Negative); RBC 0-2 /HPF (0-2); Specific Gravity 1.013 (1.005-1.025); Urobilinogen NEGATIVE mg/dL (0-1)
[2020-07-15 13:33] VITALS: O2SAT 92
== END 2020-07-15 13:35 | disposition left against medical advice (07) ==
LOC: ED 09:28
DX: R55 Syncope and collapse (principal); R42 Dizziness and giddiness; S01.511A Laceration without foreign body of lip, initial encounter; M25.511 Pain in right shoulder; R19.7 Diarrhea, unspecified; W18.11XA Fall from or off toilet without subsequent striking against object, initial encounter
CPT/HCPCS: 12013; 36415; 70450; 70486; 72125; 73030; 80053; 81001; 83735; 84484; 84703; 85025; 85379; 93005; 93041; 94760; 99284